=== PATIENT | male | born 1945 | race Caucasian/White ===

== ENCOUNTER → 2017-11-11 10:18 | Outpatient (CLI) | payer MEDICARE, OTHER, SELFPAY ==
[2017-11-11 12:30] LABS: Absolute Lymphocyte Count 2.17 X10^3/ul (0.83-4.51); Absolute Neutrophil Count 5.4 X10^3/uL (2.0-7.7); Basophil# 0.02 X10^3/uL; Basophil% 0.2 % (0-1); Eosinophil# 0.07 X10^3/uL; Eosinophils% 0.8 % (0-5); Hematocrit 41.1 % (40-54); Hemoglobin 13.9 g/dl (13.0-16.5); Lymphocyte # 2.17 X10^3/ul (4.0); Lymphocyte % 25.4 % (19-41); Mean Corp Hgb Conc 33.8 g/gl (32-36); Mean Corpuscular Hgb 32.4 pg (27.0-32.0); Mean Corpuscular Volume 95.8 fL (80-94); Mean Platelet Vol. 11.8 fl (6.2-12.0); Monocyte# 0.84 X10^3/uL; Monocyte% 9.8 % (0-10); Neutrophil % 63.2 % (47-70); Platelet Count 227 K/mm3 (150-450); RBC Distribution Width CV 12.8 % (11.6-14.6); RBC Distribution Width SD 43.1 fl (35.1-43.9); Red Blood Count 4.29 M/mm3 (4.6-6.2); White Blood Count 8.6 K/mm3 (4.4-11.0)
[2017-11-11 12:31] LABS: POSITIVE COUNT NO; POSITIVE DIFFERENTIAL NO; POSITIVE MORPHOLOGY NO
[2017-11-11 12:36] LABS: International Normalized Ratio 0.9; Prothrombin Time (Protime)PT. 12.3 SECONDS (11.7-14.9)
[2017-11-11 12:43] LABS: ALB/GLOB Ratio 1.1 RATIO (0.9-2.4); AST(SGOT) 14 U/L (15-37); Alanine Aminotransfer ALT/SGPT 25 U/L (16-61); Albumin, Serum 3.7 g/dL (3.2-5.0); Alkaline Phosphatase 85 U/L (45-117); Anion Gap 8 (5-15); BUN 21 mg/dL (7-18); BUN/Creat Ratio 19.4 RATIO (10-20); Chloride 103 mmol/L (98-107); Creatinine, Serum 1.08 mg/dL (0.70-1.30); EST Glomerular Filtration Rate 71 mL/min (>60); Est Glom Filt Rate - Afr Amer 86 mL/min (>60); Globulin 3.5 g/dL (2.2-4.2); Glucose 130 mg/dL (74-106); Potassium 4.1 mmol/L (3.5-5.1); Protein, Total 7.2 g/dL (6.4-8.2); Sodium Level 140 mmol/L (136-145)
[2017-11-11 12:47] LABS: Hemoglobin A1c 5.6 % (4.2-6.3)
== END ==
PROVIDERS: Visit Provider Family Medicine
DX: R73.03 Prediabetes (principal); N40.0 Benign prostatic hyperplasia without lower urinary tract symptoms; M15.9 Polyosteoarthritis, unspecified; D66 Hereditary factor VIII deficiency; B19.20 Unspecified viral hepatitis C without hepatic coma
CPT/HCPCS: 36415; 80053; 82140; 83036; 85025; 85610

== ENCOUNTER 2017-12-24 11:33 | Emergency (ER) | payer MEDICARE, OTHER, SELFPAY ==
[2017-12-24 11:35] VITALS: BP 134/80; PULSE 90; RESP 18; TEMP 36.8; O2SAT 99; BMI 27.1
--- NOTE | 2017-12-24 12:00 | NURSING ---
NO LW OR POA
--- NOTE | 2017-12-24 12:10 | RAD_ITS ---
STUDY: X-RAY CHEST REASON FOR EXAM: Male, 72 years old. ALT LOC SINCE WEDNESDAY, weakness AND TROUBLE AMBULATING. PT HAVING TROUBLE COMMUNICATING WITH SEARCH LEAD AND TECHNIQUE: Single AP portable view of the chest. COMPARISON: June 18, 2016 FINDINGS: The lungs are underexpanded. There is new left basilar atelectasis/consolidation. There is new right basilar atelectasis.. There could be a new small left pleural effusion. Normal size heart. Normal mediastinum and juan. Normal visualized pulmonary arteries. There is atherosclerotic calcification of the aortic arch with tortuosity. Normal visualized thoracic spine. Normal visualized ribs, clavicles, and shoulders. There is no demonstrated abnormality of the visualized soft tissue structures of the upper abdomen. RAD/Chest 1 View (Portable) IMPRESSION: There is new left basilar atelectasis/consolidation. There is new right basilar atelectasis.. There could be a new small left pleural effusion. Electronically Signed: Lis Saleem MD at 12:40 EDT , Service support ,
--- NOTE | 2017-12-24 12:10 | CT_ITS ---
STUDY: CT BRAIN WITHOUT CONTRAST REASON FOR EXAM: Male, 72 years old. ALTERED LOC WEDNESDAY/WEAKNESS/DIFF. AMBULATING RADIATION DOSAGE (If Supplied By Facility): CTDIvol = ( 44.99 ) mGy, DLP = ( 779.24 ) mGycm TECHNIQUE: Transaxial CT imaging of the brain was performed without administration of intravenous contrast material. Individualized dose optimization techniques were used for this CT. COMPARISON: None. FINDINGS: Normal soft tissue structures. Normal calvarium. Normal size ventricles and extra-axial spaces for the patient's age. There are areas of decreased attenuation within the white matter tracts of the supratentorial brain, consistent with microvascular disease changes. Normal basal ganglia and thalami. Normal brainstem. Normal cerebellum. There is no intracranial hemorrhage. There are no findings of an acute ischemic infarction. Normal visualized paranasal sinuses. CT/Brain/Head without Contrast IMPRESSION: Chronic involutional changes of the brain. 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 Electronically Signed: Lis Saleem MD at 12:37 EDT , Service support ,
--- NOTE | 2017-12-24 12:12 | EKG12_ITS ---
Test Reason : ALT LOC Blood Pressure : / mmHG Vent. Rate : 081 BPM Atrial Rate : 081 BPM P-R Int : 132 ms QRS Dur : 128 ms QT Int : 404 ms P-R-T Axes : 072 -39 050 degrees QTc Int : 469 ms Normal sinus rhythm Left axis deviation Right bundle branch block Abnormal ECG Confirmed by WHIT DOUGLAS, JACQUE ([id number]), editor publications JENNIFER WHEELER ([id number]) on 12/27/2017 1:27:20 PM Referred By: TOM Confirmed By:JACQUE SHERMAN MD
[2017-12-24 12:40] VITALS: BP 132/76; PULSE 88; RESP 15; O2SAT 98
[2017-12-24 12:44] LABS: Absolute Lymphocyte Count 1.74 X10^3/ul (0.83-4.51); Absolute Neutrophil Count 7.1 X10^3/uL (2.0-7.7); Basophil# 0.02 X10^3/uL; Basophil% 0.2 % (0-1); Eosinophil# 0.01 X10^3/uL; Eosinophils% 0.1 % (0-5); Hematocrit 41.4 % (40-54); Hemoglobin 13.3 g/dl (13.0-16.5); Lymphocyte # 1.74 X10^3/ul (4.0); Lymphocyte % 17.9 % (19-41); Mean Corp Hgb Conc 32.1 g/gl (32-36); Mean Corpuscular Volume 93.5 fL (80-94); Mean Platelet Vol. 11.4 fl (6.2-12.0); Monocyte# 0.82 X10^3/uL; Monocyte% 8.4 % (0-10); Neutrophil # 7.13 X10^3/uL (2.7-7.7); Neutrophil % 73.2 % (47-70); Platelet Count 194 K/mm3 (150-450); RBC Distribution Width CV 12.7 % (11.6-14.6); RBC Distribution Width SD 42.6 fl (35.1-43.9); Red Blood Count 4.43 M/mm3 (4.6-6.2); White Blood Count 9.7 K/mm3 (4.4-11.0)
[2017-12-24 12:52] LABS: AST(SGOT) 16 U/L (15-37); Alanine Aminotransfer ALT/SGPT 21 U/L (16-61); Albumin, Serum 3.8 g/dL (3.2-5.0); Alkaline Phosphatase 100 U/L (45-117); Anion Gap 6 (5-15); BUN 20 mg/dL (7-18); BUN/Creat Ratio 17.5 RATIO (10-20); Bilirubin, Direct 0.31 mg/dL (0.00-0.30); Calcium,Total 9.5 mg/dL (8.5-10.1); Chloride 109 mmol/L (98-107); Creatinine, Serum 1.14 mg/dL (0.70-1.30); EST Glomerular Filtration Rate 67 mL/min (>60); Est Glom Filt Rate - Afr Amer 81 mL/min (>60); Estimated Creatinine Clearance 53.96 ml/min; Globulin 3.7 g/dL (2.2-4.2); Glucose 152 mg/dL (74-106); Lipase 221 U/L (73-393); Protein, Total 7.5 g/dL (6.4-8.2); Sodium Level 144 mmol/L (136-145)
[2017-12-24 12:53] LABS: POSITIVE COUNT NO; POSITIVE DIFFERENTIAL NO; POSITIVE MORPHOLOGY NO
[2017-12-24 13:05] LABS: Bacteria 0 SEEN /hpf (None Seen); Mucous, Urine 0 SEEN /hpf (<or=2+); Squamous Epithelial Cells - UA 0 SEEN /hpf (0-5); White Blood Cells 0 SEEN /hpf (0-5)
[2017-12-24 13:08] LABS: Color, Urine Yellow (Yellow); Glucose, Dipstick 250 mg/dl (Normal); Ketone-Dipstick Negative (Negative); Leukocyte Esterase-Dipstick 25 /ul (Negative); Nitrite-Dipstick Negative (Negative); Occult Blood-Urine 10 /ul (Negative); Protein-Dipstick 30 mg/dl (Negative); Specific Gravity, Urine 1.025 (1.002-1.030); Urine Bilirubin Dipstick Negative (Negative); Urine Clarity Clear (Clear); Urine Urobilinogen Normal (Normal)
--- NOTE | 2017-12-24 13:19 | ED.VISSUMM ---
- ER Visit Summary Date of Service: 12/24/17 Chief Complaint: Patient presents with increased confusion over the past week or so, he is blind and , communicates via tactile hand gestures, apparently now he does not even know where the bathroom is, he cannot function in his house. No fever or chills. No chest pain shortness of breath infect other than the confusion there is no other symptoms. On speaking through an sign manufacturer who seems pretty comfortable with the assessment and patient's [id number] is also here and she could communicate quite well with him. As have a history of hepatitis C apparently his ammonia level was slightly elevated and was placed on lactulose for the past week. Physical exam Not appear in acute distress. Moist mucous membranes, no obvious facial deformity No C-spine tenderness supple neck. Regular rate and rhythm without any obvious murmurs Clear lungs bilaterally speaking in full sentences without any obvious respiratory distress Abdomen soft and nontender no guarding or rebound Moves all extremities without any difficulty or pain. Skin does not show any obvious rashes or lesions, no trauma. Alert oriented ?3 with no gross focal deficit Patient has an unremarkable workup in the emergency department. CT of the head is unremarkable blood work is unremarkable he has a history of hepatitis C and ammonia was drawn which was normal. Patient received IV fluids, there is signs of dehydration since his BUN is slightly increased, after discussing with family they want to discharge and take him home I am okay with this. I told him to discontinue the lactulose since the ammonia is normal. Disposition: Discharge stable condition Impression: Confusion Dehydration This note was generated with [employer] dictation software. It may contain incorrect words, spelling, and punctuation that were not noted in review of the chart prior to signing ED Disposition - Plan for ED Patient: Disposition: Home or Assisted Living Chief Complaint: Alt LOC Instructions: ED Dementia Caregiver Support Referrals: Steve Rutherford DO [Primary Care Provider] - 2 Days
[2017-12-24 13:21] VITALS: BP 142/82; PULSE 86; RESP 14; O2SAT 92
[2017-12-24 13:26] LABS: Red Blood Cells-Urine 0-5 SEEN /hpf (0-5)
--- NOTE | 2017-12-24 13:27 | ED.DCSUM_ITS ---
- ER Visit Summary Date of Service: 12/24/17 Chief Complaint: Patient presents with increased confusion over the past week or so, he is blind and , communicates via tactile hand gestures, apparently now he does not even know where the bathroom is, he cannot function in his house. No fever or chills. No chest pain shortness of breath infect other than the confusion there is no other symptoms. On speaking through an blade aligner who seems pretty comfortable with the assessment and patient's [id number] is also here and she could communicate quite well with him. As have a history of hepatitis C apparently his ammonia level was slightly elevated and was placed on lactulose for the past week. Physical exam Not appear in acute distress. Moist mucous membranes, no obvious facial deformity No C-spine tenderness supple neck. Regular rate and rhythm without any obvious murmurs Clear lungs bilaterally speaking in full sentences without any obvious respiratory distress Abdomen soft and nontender no guarding or rebound Moves all extremities without any difficulty or pain. Skin does not show any obvious rashes or lesions, no trauma. Alert oriented ?3 with no gross focal deficit Patient has an unremarkable workup in the emergency department. CT of the head is unremarkable blood work is unremarkable he has a history of hepatitis C and ammonia was drawn which was normal. Patient received IV fluids, there is signs of dehydration since his BUN is slightly increased, after discussing with family they want to discharge and take him home I am okay with this. I told him to discontinue the lactulose since the ammonia is normal. Disposition: Discharge stable condition Impression: Confusion Dehydration This note was generated with [employer] dictation software. It may contain incorrect words, spelling, and punctuation that were not noted in review of the chart prior to signing ED Disposition - Plan for ED Patient: Disposition: Home or Assisted Living Chief Complaint: Alt LOC Instructions: ED Dementia Caregiver Support Referrals: Steve Rutherford DO [Primary Care Provider] - 2 Days
[2017-12-24 14:05] VITALS: BP 143/81; PULSE 87; O2SAT 96
[2017-12-24 14:57] VITALS: BP 150/88; PULSE 88; RESP 18; O2SAT 100
== END 2017-12-24 14:59 | disposition home or self-care (01) ==
PROVIDERS: Emergency Provider Emergency Medicine; PCP Family Medicine
DX: R41.0 Disorientation, unspecified (principal); E86.0 Dehydration; H54.7 Unspecified visual loss; M25.552 Pain in left hip; G89.29 Other chronic pain; D66 Hereditary factor VIII deficiency; B19.20 Unspecified viral hepatitis C without hepatic coma; Z79.899 Other long term (current) drug therapy
CPT/HCPCS: 70450; 71045; 80048; 80076; 81001; 82140; 83690; 84484; 85025; 93005; 96365; 99284; J7030; J7040; A4216

== ENCOUNTER 2018-01-10 10:09 | Emergency (ER) | payer MEDICARE, OTHER, SELFPAY ==
[2018-01-10 10:10] VITALS: BP 124/81; PULSE 74; RESP 17; TEMP 36.7; O2SAT 94; BMI 26.6
--- NOTE | 2018-01-10 10:53 | ED.VISSUMM ---
- ER Visit Summary Date of Service: 01/10/18 Chief Complaint: Abdominal pain, diarrhea History of Present Illness: The patient is a 72 M who presents with abdominal pain and diarrhea. Started late last night. Patient has diffuse abdominal pain. He has had no nausea vomiting. He has had diarrhea with multiple loose stools. No blood. No urinary symptoms. Patient has had a cholecystectomy in the past. He tried Pepto-Bismol without any relief. No fevers. Patient is deaf and blind and his caregiver who is with him is also deaf so a ic design engineer is used for all of the history and patient interactions. Physical Examination: Vital signs reviewed. HEENT exam unremarkable. Heart is regular rate and rhythm without murmurs. Lungs are clear to auscultation. Abdomen soft and nontender. There is no distention or guarding. His neurologic exam is at baseline for this patient. Test Results: Laboratory studies are unremarkable except for a white blood count of 12.4. Glucose 172. CAT scan reveals a questionable ileus with diverticulosis. There is fluid-filled distended small bowel without a transition point. No signs of obstruction Emergency Department Course and Treatment: Patient was given Zofran for nausea and feels better. I do not feel this represents a bowel obstruction. I even questioned ileus diagnosis as he is having bowel movements here in the emergency department. I will give him Imodium as well as Zofran for home. Family requested I do x-ray of his hip because they have an order and it would be more convenient for them. I will do this. They will need follow-up with Dr. Rutherford Treatment Plan: [] Disposition: Discharge Impression: Abdominal pain, diarrhea This note was generated with [employer] dictation software. It may contain incorrect words, spelling, and punctuation that were not noted in review of the chart prior to signing ED Disposition - Plan for ED Patient: Chief Complaint: Abd Pain Referrals: Steve Rutherford DO [Primary Care Provider] -
[2018-01-10 11:08] LABS: Absolute Lymphocyte Count 1.68 X10^3/ul (0.83-4.51); Absolute Neutrophil Count 9.8 X10^3/uL (2.0-7.7); Basophil# 0.02 X10^3/uL; Basophil% 0.2 % (0-1); Eosinophil# 0.08 X10^3/uL; Eosinophils% 0.6 % (0-5); Hematocrit 41.7 % (40-54); Hemoglobin 13.6 g/dl (13.0-16.5); Lymphocyte # 1.68 X10^3/ul (4.0); Lymphocyte % 13.5 % (19-41); Mean Corp Hgb Conc 32.6 g/gl (32-36); Mean Corpuscular Hgb 30.3 pg (27.0-32.0); Mean Corpuscular Volume 92.9 fL (80-94); Mean Platelet Vol. 11.7 fl (6.2-12.0); Monocyte# 0.83 X10^3/uL; Monocyte% 6.7 % (0-10); Neutrophil # 9.81 X10^3/uL (2.7-7.7); Neutrophil % 78.8 % (47-70); Platelet Count 176 K/mm3 (150-450); RBC Distribution Width CV 12.6 % (11.6-14.6); RBC Distribution Width SD 42.6 fl (35.1-43.9); Red Blood Count 4.49 M/mm3 (4.6-6.2); White Blood Count 12.4 K/mm3 (4.4-11.0)
[2018-01-10 11:14] LABS: POSITIVE COUNT NO; POSITIVE DIFFERENTIAL NO; POSITIVE MORPHOLOGY NO
[2018-01-10 11:18] LABS: AST(SGOT) 18 U/L (15-37); Alanine Aminotransfer ALT/SGPT 22 U/L (16-61); Albumin, Serum 3.6 g/dL (3.2-5.0); Alkaline Phosphatase 89 U/L (45-117); Anion Gap 10 (5-15); BUN 16 mg/dL (7-18); BUN/Creat Ratio 15.7 RATIO (10-20); Chloride 105 mmol/L (98-107); Creatinine, Serum 1.02 mg/dL (0.70-1.30); EST Glomerular Filtration Rate 76 mL/min (>60); Est Glom Filt Rate - Afr Amer 92 mL/min (>60); Globulin 3.6 g/dL (2.2-4.2); Glucose 172 mg/dL (74-106); Lipase 121 U/L (73-393); Potassium 4.2 mmol/L (3.5-5.1); Protein, Total 7.2 g/dL (6.4-8.2); Sodium Level 143 mmol/L (136-145)
[2018-01-10] MEDS: Ondansetron 4 MG/2 ML Vial IV (11:58)
--- NOTE | 2018-01-10 12:44 | ED.DEP ---
ED Disposition - Plan for ED Patient: Chief Complaint: Abd Pain Instructions: ED Abdominal Pain Unkn Cause Prescriptions: Ondansetron [Zofran Odt] 4 mg PO Q8H PRN PRN #10 tab PRN Reason: Nausea Loperamide HCl [Imodium A-D] 2 mg PO TID #20 tab Referrals: Steve Rutherford DO [Primary Care Provider] -
[2018-01-10 13:43] VITALS: BP 119/72; PULSE 61; RESP 18; O2SAT 97
== END 2018-01-10 13:55 | disposition home or self-care (01) ==
LOC: ED 10:35
PROVIDERS: Emergency Provider Emergency Medicine; Family Provider Family Medicine; PCP Family Medicine
DX: R10.9 Unspecified abdominal pain (principal); R19.7 Diarrhea, unspecified; H91.90 Unspecified hearing loss, unspecified ear; H54.7 Unspecified visual loss; K57.90 Diverticulosis of intestine, part unspecified, without perforation or abscess without bleeding; K21.9 Gastro-esophageal reflux disease without esophagitis; I10 Essential (primary) hypertension; Z90.49 Acquired absence of other specified parts of digestive tract; Z79.899 Other long term (current) drug therapy
CPT/HCPCS: 73502; 74176; 80053; 83690; 85025; 96374; 99283; A4216; J2405

== ENCOUNTER → 2018-02-15 13:19 | Outpatient (CLI) | payer MEDICARE, OTHER, SELFPAY ==
--- NOTE | 2018-02-15 13:23 | RAD_ITS ---
STUDY: X-RAY - PELVIS AND RIGHT HIP REASON FOR EXAM: Male, 72 years old. hip and back pain TECHNIQUE: Radiological exam, hip, unilateral, with pelvis when performed; 2 or 3 views. COMPARISON: 01.10.18. FINDINGS: There is a non-specific bowel gas pattern. Normal visualized soft tissue structures. Degenerative findings in the lumbar spine. There are atherosclerotic vascular calcifications. Normal bilateral iliac wings, sacroiliac joints and visualized sacrum. Normal bilateral superior and inferior pubic rami. Normal pubic symphysis. Normal bilateral ischial tuberosities. Normal visualized femoral head. Normal acetabulum. Normal hip joint. RAD/HIP, UNI W/ Pelvis 2-3 Views IMPRESSION: Normal x-ray examination of the pelvis and hip. Electronically Signed: Foreign Mon MD at 16:59 EDT , Service support ,
--- NOTE | 2018-02-15 13:23 | RAD_ITS ---
STUDY: X-RAY - LUMBAR SPINE REASON FOR EXAM: Male, 72 years old. Hip and back pain TECHNIQUE: 5 view(s) of the lumbar spine were obtained. COMPARISON: None FINDINGS: Straightening of the lumbar lordosis. There is no substantial scoliosis. There is a normal alignment of the vertebrae. There are multiple metallic clips in the right upper quadrant. This is consistent for a cholecystectomy. There is multilevel endplate spondylosis of the lumbar vertebrae. There is multi-level degenerative disc disease with multi-level disc space narrowing. There are atherosclerotic vascular calcifications. The soft tissue structures are unremarkable. RAD/L/S Spine Min 4 Views IMPRESSION: Degenerative changes of the spine, as detailed above. There is mild straightening of the normal cervical lordosis. This can suggest neck strain. Electronically Signed: Foreign Mon MD at 17:14 EDT , Service support ,
== END ==
PROVIDERS: Family Provider Family Medicine; PCP Family Medicine; Referring Provider Family Medicine; Visit Provider Family Medicine
DX: M54.5 Low back pain (principal); M25.551 Pain in right hip
CPT/HCPCS: 72110; 73502